=== PATIENT | male | born 1985 | race Caucasian/White ===

== ENCOUNTER 2022-10-24 09:40 | Emergency (ER) | payer OTHER ==
[2022-10-24] MEDS ORDERED: Ibuprofen 200 MG TAB ONE (10:23)
[2022-10-24] MEDS ORDERED: methylPREDNISolone Acetate 40 mg/ml Vial ONE (10:51)
[2022-10-24 10:58] LABS: SARS-CoV-2 NAA Rapid Test Not Detected (NotDetected)
[2022-10-24] MEDS ORDERED: Acetaminophen 500 MG TAB ONE (11:06)
[2022-10-24 18:39] LABS: MONO NEGATIVE CONTROL ZONE White (Negative) (White); MONO POSITIVE CONTROL Pink Line (Positive) (PINK/RED); Mononucleosis NEGATIVE (NEGATIVE)
== END 2022-10-24 11:08 | disposition home or self-care (01) ==
LOC: NAV ERS 09:40
DX: J06.9 Acute upper respiratory infection, unspecified (principal); Z20.822 Contact with and (suspected) exposure to COVID-19
CPT/HCPCS: 36415; 86308; 87081; 87430; 87804; 96372; 99283; J1030; U0002

== ENCOUNTER 2023-09-19 13:01 | Emergency (ER) | payer OTHER ==
[2023-09-19] MEDS ORDERED: Benzonatate 100 MG CAP ONE (13:26)
== END 2023-09-19 14:08 | disposition home or self-care (01) ==
LOC: NAV ERS 13:01
DX: J20.9 Acute bronchitis, unspecified (principal)
CPT/HCPCS: 87804; 87807; 99283

== ENCOUNTER 2025-06-17 15:29 | Emergency (ER) | payer OTHER ==
[2025-06-17] MEDS ORDERED: Ibuprofen 200 MG TAB ONE (16:21)
[2025-06-17] MEDS ORDERED: cefTRIAXone (ROCEPHIN) 1 GM VIAL ONE (16:38)
[2025-06-17] MEDS ORDERED: Lidocaine 1% (PF) 30 ML VIAL ONE (16:38)
== END 2025-06-17 17:02 | disposition home or self-care (01) ==
LOC: NAV ERS 15:29
DX: J02.0 Streptococcal pharyngitis (principal); I10 Essential (primary) hypertension
CPT/HCPCS: 87430; 96372; 99283; J0696